=== PATIENT | female | born 1965 | race Caucasian/White ===

== ENCOUNTER 2021-05-09 08:15 | Outpatient (RCR) | payer MEDICARE, MEDICAID, SELFPAY ==
[2021-05-02 08:13] VITALS: BP 127/78; PULSE 113; RESP 18; TEMP 36.1; BMI 73.7
--- NOTE | 2021-05-02 09:30 | HP.PCM_ITS ---
History of Present Illness Date of Service: 05/02/21 Chief Complaint: Follow-up abdominal wounds left lower quadrant History of Wound: 55-year-old morbid obese woman with history of endometrial cancer that received radiation therapy in the last year. She has healed radiation mcneil all over her abdomen. She has developed cellulitis in her abdominal area and then 2 areas opened about 2 months ago and now connecting underneath the skin with tunneling. She has been seen in the emergency room and was sent to rehab for wound care. She has been taking we think ciprofloxacin as an antibiotic and has been packing it with new gauze. She is currently on Xarelto blood thinners . The wounds themselves look clean irrigate well bleeds easily we will apply for wound VAC. Cultures will be obtained. We will pack with iodoform gauze for the week until we get the wound VAC. [facility] Home Medications albuterol sulfate [Ventolin Hfa (SP)] 1 - 2 puff INHALATION Q4H PRN PRN 10/23/17 [History Last Taken Unknown] citalopram 40 mg PO DAILY 10/23/17 [History Last Taken Unknown] divalproex [Depakote] 500 mg PO BID 10/23/17 [History Last Taken 10/24/17 07:30] fluticasone furoate-vilanterol [Breo Ellipta 200-25 Mcg INH] 1 puff IH DAILY 10/23/17 [History Last Taken Unknown] fluticasone propionate 2 spray NASAL DAILY 10/23/17 [History Last Taken Unknown] loratadine 10 mg PO DAILY 10/23/17 [History Last Taken Unknown] lorazepam 0.5 mg PO TID PRN PRN 10/23/17 [History Last Taken Unknown] metolazone 2.5 mg PO BID 10/23/17 [History Last Taken Unknown] promethazine 25 mg PO Q6H PRN PRN 10/23/17 [History Last Taken Unknown] rivaroxaban [Xarelto] 20 mg PO DAILY 10/23/17 [History Last Taken Unknown] sumatriptan succinate [Imitrex] 100 mg PO .X1 PRN 10/23/17 [History Last Taken Unknown] cholecalciferol (vitamin D3) [Vitamin D3] 25 mcg PO DAILY 05/02/21 [History Last Taken Unknown] Allergy/AdvReac Type Severity Reaction Status Date / Time cephalexin [From flex] Allergy Rash Verified 05/02/21 08:28 doxycycline Allergy Rash Verified 05/02/21 08:28 sulfamethoxazole Allergy Rash Verified 05/02/21 08:28 [From Bactrim] trimethoprim [From Bactrim] Allergy Rash Verified 05/02/21 08:28 Social History Smoking Status: Never smoker ROS Constitutional Constitutional: Reports systems reviewed and no addt'l complaints, except as documented Eyes Eyes: Reports systems reviewed and no addt'l complaints, except as documented ENT HEENT: Reports systems reviewed and no addt'l complaints, except as documented Cardiovascular Cardiovascular: Reports systems reviewed and no addt'l complaints, except as documented Respiratory/Chest Respiratory/Chest: Reports systems reviewed and no addt'l complaints, except as documented Gastrointestinal Gastrointestinal: Reports systems reviewed and no addt'l complaints, except as documented Genitourinary Genitourinary: Reports systems reviewed and no addt'l complaints, except as documented Musculoskeletal Musculoskeletal: Reports systems reviewed and no addt'l complaints, except as documented Integumentary Integumentary: Reports systems reviewed and no addt'l complaints, except as documented Neurologic Neurologic: Reports systems reviewed and no addt'l complaints, except as documented Psychiatric Psychiatric: Reports systems reviewed and no addt'l complaints, except as documented Endocrine Endocrinology: Reports systems reviewed and no addt'l complaints, except as documented Hematologic/Lymphatic Hematologic/Lymphatic: Reports systems reviewed and no addt'l complaints, except as documented Allergic/Immunologic Allergic/Immunologic: Reports systems reviewed and no addt'l complaints, except as documented Vital Signs Vital Signs Vital Signs: 05/02/21 08:13 Temperature 96.9 F L Temperature Source Temporal Pulse Rate 113 H Respiratory Rate 18 Blood Pressure 127/78 H Blood Pressure Mean 94 Blood Pressure Source Monitor Blood Pressure Position Sitting Blood Pressure Location Left Forearm Oxygen Delivery Method Room Air Weight Weight: 416 lb Body Mass Index (BMI) 73.7 Physical Exam Const oriented x3 General Appearance: cooperative Exam Limitations: no limitations Nutritional Appearance: obese and morbidly obese HEENT normocephalic Head and Scalp: normal to inspection Face and Sinus: normal facial exam Nose: external nose normal General Ear: hearing grossly impaired External Ear: external ears normal Mouth: oral and palatal mucosa normal Eyes PERRL General Eye: normal appearance of both eyes Neck full ROM General: normal visual inspection Resp normal respiratory effort Effort and Inspection: able to speak in complete sentences Auscultation: clear to auscultation bilaterally Cardio regular rate and regular rhythm Palpation: normal PMI Rate: regular rate Rhythm: regular rhythm GI Auscultation: normoactive bowel sounds Palpation: soft and no hepatosplenomegaly external exam normal Back/Spine Cervical Spine: cervical ROM normal Thoracic Spine / Upper Back: normal to inspection Lumbar Spine / Lower Back: normal to inspection Extremity normal to inspection General Extremity: normal exam except as noted Skin no rashes or lesions noted Neuro oriented x3 Psych Appearance: grossly normal Speech: normal speech Thought Content: normal thought content Judgement: judgement good Debridement Note Debridement Note Post-Debridement Measurements and Additional Note: Post-Debridement Measurements/Treatment - Nurse 1 - General Ulcer Assessment Start: 05/02/21 08:13 Freq: Status: Active Protocol: JODY.LOWEXT Activity Type Activity Date Activity User E-Sign Co-Sign Detail Recorded Client Recorded Date Recorded By Document 05/02/21 08:13 BRENDA [id number] 05/02/21 08:22 BRENDA 05/02/21 08:13 - Today's Visit Information Type of service Follow-up Visit (Physician/[employer]ER ) Arrival Mode Wheelchair Transfer Assistance Other Transfer Assist (Other) stand by Accompanied by mother Patient Identification Verified (Name & Yes ) Patient Requires Transmission-Based No Precautions Height and Weight Height 5 ft 3 in Weight 416 lb Weight in Pounds 416.0 lbs Weight Measurement Method Stated by Patient Body Mass Index (BMI) 73.7 BMI Classification Obese BSA - Bryant 2.64 Vital Signs Temperature (97.8 F-99.1 F) 96.9 F L Temperature Source Temporal Pulse Rate (60-100) 113 H Pulse Location Monitor Respiratory Rate (12-18) 18 Respiratory rate source Observation Oxygen Delivery Method Room Air Blood Pressure (90/60-120/80) 127/78 H Blood Pressure Mean 94 Source Monitor Position Sitting Blood Pressure Location Left Forearm History Since Last Visit- (Skip if this is Patient's initial visit) Left Footwear Regular Shoe Right Footwear Regular Shoe Pain Scale: 0-10 Numeric Is Patient Pain Free? Yes Communication Assessment Preferred language Israeli Clinical Quality Assurance Associate Required No Able to Read Yes Able to Write Yes Communication Tools None Right Hearing Abillity Normal Left Hearing Abillity Normal Visual Assistive Devices Glasses Teaching Assessment Preferences Verbal,Written, Audio/Visual, Demonstration Barriers to Learning None Readiness To Learn Excellent Willingness to Engage in Self Management High Activies Readiness to Engage in Self Management High Activities Anxiety Level Calm Cooperation Cooperative Perception Coherent Interest in Health Problem Asks Questions Education Importance Acknowledges Need Does Patient Smoke tobacco or other No substances Smoking Status Never smoker Is Patient Diabetic No Culture/Catholic/Environmental Professional Cultural/Catholic Needs that may affect No Treatment Plan WC - Nurse 1 - General Ulcer Measurement Start: 05/02/21 08:13 Freq: Status: Active Protocol: Activity Type Activity Date Activity User E-Sign Co-Sign Detail Recorded Client Recorded Date Recorded By Document 05/02/21 08:13 KR [id number] 05/02/21 08:22 KR 05/02/21 08:13 Wound Center Nurse 1 #1- L LOWER ABDOMEN -Combined with other wound No -Current Size (cm) - Length 1.7 -Current Size (cm) - Width 0.6 -Current Size (cm) - Depth 5.3 -Total Square Cm 1.02 -Date of Last Picture (Recall this 05/02/21 field) -Photo Taken Yes -Epithelialization None Present -Tunneling No -Undermining/Tunneling No -Circular Undermining No -Exudate Amt Large -Exudate Type Serosanguineous -Wound Margin Distinct, Outline Attached -Granulation Amt Large (67-100%) -Granulation Quality Red -Slough/Fibrin Yes -Necrosis Amt Small (1-33%) -Necrotic Tissue Type Adherent Slough -Texture (Kristal-wound Skin Appearance) Assessed, Scarring -Moisture (Kristal-wound Skin Appearance) Assessed -Color (Kristal-wound Skin Appearance) Assessed -Temperature (Kristal-wound Skin No Abnormality Appearance) (Pt Warm) -Tenderness on Palpation (Kristal-wound No Skin Appearance) -Ulcer Cleansing Rinsed/ Irrigated with Saline -Foul Odor after Cleansing No -Anesthetic Used 5% Lidocaine Gel WC - Nurse 2 - General Ulcer CM Notes Start: 05/02/21 08:13 Freq: Status: Active Protocol: Activity Type Activity Date Activity User E-Sign Co-Sign Detail Recorded Client Recorded Date Recorded By Document 05/02/21 09:00 MW [id number] 05/02/21 09:09 MW 05/02/21 09:00 Wound Center Nurse 2 -Time 09:01 -Correct Patient Yes -Correct Side, Site, Position Yes -Correct Procedure Yes -Procedure Performed Yes -Type of Procedure Debridement -Clinical Debridement Subcutaneous -Tissue Removed Subcutaneous -Post Debridement (cm) - Length 1.0 -Post Debridement (cm) - Width 4.5 -Post Debridement (cm) - Depth 5.3 -Total Square (Post) (cm) 4.50 -Area of Debridement (cm) - Length 1.0 -Area of Debridement (cm) - Width 4.5 -Total Square (Area) (cm) 4.50 -Tunneling No -Undermining/Tunneling No -Circular Undermining No -Wound/Ulcer Outcome Not Healed -Ulcer Cleansing Rinsed/ Irrigated with Saline -Foul Odor after Cleansing No -Bioengineered Tissue No -Bleeding Controlled with Pressure -Offloading No -Debridement - Subq, 1st 20sq cm Yes - Nurse 3 - General Ulcer D/C NN Start: 05/02/21 08:13 Freq: Status: Active Protocol: Activity Type Activity Date Activity User E-Sign Co-Sign Detail Recorded Client Recorded Date Recorded By Document 05/02/21 09:20 [facility] [id number] 05/02/21 09:21 [facility] 05/02/21 09:20 Wound Care Nurse 3 -Ulcer Cleansing Rinsed/ Irrigated with Saline -Foul Odor after Cleansing No -Primary Dressing Applied Nugauze, Iodoform -Primary Dressing Covered/Secured with Secured with Tape,Other -Other Covering ABD -Nugauze, Iodoform 1/ 1 Treatment Response Procedure Tolerated Well Pain Scale: 0-10 Numeric Is Patient Pain Free? Yes - Visit Discharge Discharge Condition Stable Ambulatory Status Wheelchair Transportation Private Auto Accompanied by MOM Wound debrided: Left lower quadrant wounds Laterality: Left Type of Debridement: Excisional debridement Anesthesia Used: 5% Lidocaine Gel Depth: Down to and including healthy tissue and in the subcutaneous layer Percentage of wound debrided: 100 Instrument Used: 7mm curette Tissue Removed: Fibrin Severity: Fat Layer Exposed Amount of bleeding with debridement: Mild Bleeding Controlled with: Compression and gauze Patient tolerated procedure: Patient tolerated procedure well Assessment/Plan Assessment/Plan (1) Cellulitis: CODE(S): L03.90 - Cellulitis, unspecified QUALIFIERS: Site of cellulitis: trunk Site of cellulitis of trunk: abdominal wall Qualified Code(s): L03.311 - Cellulitis of abdominal wall (2) Nonhealing nonsurgical wound with fat layer exposed: CODE(S): T14.8XXA - Other injury of unspecified body region, initial encounter PLAN: Wash area with antibacterial soap such as Dial. Pack with iodoform gauze 1/2 inch tightly cover with gauze and ABD tape Aerobic and anaerobic cultures obtained will call with results CBC and prealbumin will be obtained Applied for wound VAC for her abdominal wall wound (3) Wound, open, abdominal wall, anterior: CODE(S): S31.109A - Unspecified open wound of abdominal wall, unspecified quadrant without penetration into peritoneal cavity, initial encounter QUALIFIERS: Encounter type: initial encounter Qualified Code(s): S31.109A - Unspecified open wound of abdominal wall, unspecified quadrant without penetration into peritoneal cavity, initial encounter (4) 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
[2021-05-09 08:04] VITALS: BP 155/71; PULSE 109; RESP 18; TEMP 36.2; BMI 73.7
--- NOTE | 2021-05-09 09:59 | PN.PCM_ITS ---
History of Present Illness Date of Service: 05/09/21 Chief Complaint: Follow-up abdominal wounds left lower quadrant History of Wound: 55-year-old morbid obese woman with history of endometrial cancer that received radiation therapy in the last year. She has healed radiation mcneil all over her abdomen. She has developed cellulitis in her abdominal area and then 2 areas opened about 2 months ago and now connecting underneath the skin with tunneling. She has been seen in the emergency room and was sent to rehab for wound care. She has been taking we think ciprofloxacin as an antibiotic and has been packing it with new gauze. She is currently on Xarelto blood thinners . Progress of Wound: The wounds themselves look clean irrigate well bleeds easily we will applied for wound VAC. She brought it today with it charged . the Cultures we obtained shows resistance to everything and We will call in ID for solution. Subjective Subjective no c/o except she sweats terribly and wonder what to do Suggest using a folded pillowcase in the folds to absorb the sweat. Objective Data Objective Data aarea looks the same with + depth will attach the wound vac and go from there Vital Signs: Vital Signs Temp Pulse Resp BP 97.1 F L 109 H 18 155/71 H 05/09/21 08:04 05/09/21 08:04 05/09/21 08:04 05/09/21 08:04 Oxygen Delivery Method Room Air Weight: 416 lb Body Mass Index (BMI) 73.7 Lab / Micro Data Attestation: I reviewed the patient's lab results. (cbc good ) Micro: Microbiology 05/02/21 09:00 Wound Abcess - Abdominal Gram Stain - Final 05/02/21 09:00 Wound Abcess - Abdominal Wound Culture - Final Acinetobacter baumannii 05/02/21 09:00 Wound Abcess - Abdominal Anaerobic Culture - Final Anaerobic cocci cultures show reisistance to everything Physical Exam Const oriented x3 General Appearance: cooperative Exam Limitations: no limitations Nutritional Appearance: morbidly obese Resp normal respiratory effort Effort and Inspection: able to speak in complete sentences Auscultation: clear to auscultation bilaterally Cardio regular rate and regular rhythm Palpation: normal PMI Rate: regular rate Rhythm: regular rhythm GI GI Narrative: abd pendulous Inspection: central obesity Auscultation: normoactive bowel sounds Palpation: soft and no hepatosplenomegaly Extremity normal to inspection General Extremity: normal exam except as noted Skin no rashes or lesions noted Neuro oriented x3 Psych Appearance: grossly normal Speech: normal speech Thought Content: normal thought content Judgement: judgement good Debridement Note Debridement Note Post-Debridement Measurements and Additional Note: Post-Debridement Measurements/Treatment - Nurse 1 - General Ulcer Assessment Start: 05/02/21 08:13 Freq: Status: Active Protocol: JODY.LOWEXT Activity Type Activity Date Activity User E-Sign Co-Sign Detail Recorded Client Recorded Date Recorded By Document 05/02/21 08:13 KR [id number] 05/02/21 08:22 KR Document 05/09/21 08:04 BM [id number] 05/09/21 08:08 BM 05/02/21 05/09/21 08:13 08:04 - Today's Visit Information Type of service Follow-up Visit Follow-up Visit (Physician/[employer] TEACHER (Physician/[employer] H[employer] TEACHER ) ) Arrival Mode Wheelchair Wheelchair Transfer Assistance Other Other Transfer Assist (Other) stand by 2 assist Accompanied by mother mother Patient Identification Verified (Name & Yes Yes ) Patient Requires Transmission-Based No No Precautions Height and Weight Height 5 ft 3 in Weight 416 lb Weight in Pounds 416.0 lbs Weight Measurement Method Stated by Patient Body Mass Index (BMI) 73.7 73.7 BMI Classification Obese Obese BSA - Bryant 2.64 Vital Signs Temperature (97.8 F-99.1 F) 96.9 F L 97.1 F L Temperature Source Temporal Temporal Pulse Rate (60-100) 113 H 109 H Pulse Location Monitor Monitor Respiratory Rate (12-18) 18 18 Respiratory rate source Observation Observation Oxygen Delivery Method Room Air Room Air Blood Pressure (90/60-120/80) 127/78 H 155/71 H Blood Pressure Mean (mm Hg) 94 99 Source Monitor Monitor Position Sitting Blood Pressure Location Left Forearm Have you changed medications since your No last visit? Any new allergies or adverse reactions No Had a fall/change in ADL's that may No increase risk of falls Signs or symptoms of abuse and/or No neglect since last visit Have you been in the hospital since your No last visit? Has dressing in place as prescribed Yes Has compression in place as prescribed N/A Has offloadiing in place as prescribed N/A Experienced any changes in pain level or No management History Since Last Visit- (Skip if this is Patient's initial visit) Left Footwear Regular Shoe Slipper Right Footwear Regular Shoe Slipper Pain Scale: 0-10 Numeric Is Patient Pain Free? Yes Yes Communication Assessment Preferred language Armenian Regional Agronomist Required No Able to Read Yes Able to Write Yes Communication Tools None Right Hearing Abillity Normal Left Hearing Abillity Normal Visual Assistive Devices Glasses Teaching Assessment Preferences Verbal,Written, Audio/Visual, Demonstration Barriers to Learning None Readiness To Learn Excellent Willingness to Engage in Self Management High Activies Readiness to Engage in Self Management High Activities Anxiety Level Calm Cooperation Cooperative Perception Coherent Interest in Health Problem Asks Questions Education Importance Acknowledges Need Does Patient Smoke tobacco or other No substances Smoking Status Never smoker Is Patient Diabetic No Culture/Orthodoxy/Internet Network Specialist Cultural/Orthodoxy Needs that may affect No Treatment Plan WC - Nurse 1 - General Ulcer Measurement Start: 05/02/21 08:13 Freq: Status: Active Protocol: Activity Type Activity Date Activity User E-Sign Co-Sign Detail Recorded Client Recorded Date Recorded By Document 05/02/21 08:13 [id number] 05/02/21 08:22 KR Document 05/09/21 08:04 [facility] [id number] 05/09/21 08:08 [facility] 05/02/21 05/09/21 08:13 08:04 Wound Center Nurse 1 #1- L LOWER ABDOMEN -Combined with other wound No No -Current Size (cm) - Length 1.7 1 -Current Size (cm) - Width 0.6 2.4 -Current Size (cm) - Depth 5.3 5.3 -Total Square Cm 1.02 2.4 -Date of Last Picture (Recall this 05/02/21 field) -Photo Taken Yes No -Epithelialization None Present None Present -Tunneling No No -Undermining/Tunneling No No -Circular Undermining No No -Exudate Amt Large Medium -Exudate Type Serosanguineous Sanguineous -Wound Margin Distinct, Distinct, Outline Outline Attached Attached -Granulation Amt Large (67-100%) Large (67-100%) -Granulation Quality Red Red -Slough/Fibrin Yes No -Necrosis Amt Small (1-33%) None Present (0 %) -Necrotic Tissue Type Adherent Slough -Texture (Kristal-wound Skin Appearance) Assessed, Assessed, Scarring Scarring -Moisture (Kristal-wound Skin Appearance) Assessed Assessed -Color (Kristal-wound Skin Appearance) Assessed Assessed -Temperature (Kristal-wound Skin No Abnormality No Abnormality Appearance) (Pt Warm) (Pt Warm) -Tenderness on Palpation (Kristal-wound No No Skin Appearance) -Ulcer Cleansing Rinsed/ soapy water Irrigated with Saline -Foul Odor after Cleansing No No -Anesthetic Used 5% Lidocaine 4% Lidocaine Gel Solution WC - Nurse 2 - General Ulcer CM Notes Start: 05/02/21 08:13 Freq: Status: Active Protocol: Activity Type Activity Date Activity User E-Sign Co-Sign Detail Recorded Client Recorded Date Recorded By Document 05/02/21 09:00 MW [id number] 05/02/21 09:09 MW Document 05/09/21 08:37 PL [id number] 05/09/21 08:41 PL 05/02/21 05/09/21 09:00 08:37 Wound Center Nurse 2 -Time 09:01 08:18 -Correct Patient Yes Yes -Correct Side, Site, Position Yes Yes -Correct Procedure Yes Yes -Procedure Performed Yes -Type of Procedure Debridement -Clinical Debridement Subcutaneous Subcutaneous -Tissue Removed Subcutaneous Subcutaneous -Post Debridement (cm) - Length 1.0 0.9 -Post Debridement (cm) - Width 4.5 3.5 -Post Debridement (cm) - Depth 5.3 4.5 -Total Square (Post) (cm) 4.50 3.15 -Area of Debridement (cm) - Length 1.0 0.9 -Area of Debridement (cm) - Width 4.5 3.5 -Total Square (Area) (cm) 4.50 3.15 -Tunneling No No -Undermining/Tunneling No No -Circular Undermining No No -Wound/Ulcer Outcome Not Healed Not Healed -Ulcer Cleansing Rinsed/ Rinsed/ Irrigated with Irrigated with Saline Saline -Foul Odor after Cleansing No No -Bioengineered Tissue No No -Bleeding Controlled with Pressure -Offloading No -Debridement - Subq, 1st 20sq cm Yes Yes Pain Scale: 0-10 Numeric Is Patient Pain Free? Yes WC - Nurse 3 - General Ulcer D/C NN Start: 05/02/21 08:13 Freq: Status: Active Protocol: Activity Type Activity Date Activity User E-Sign Co-Sign Detail Recorded Client Recorded Date Recorded By Document 05/02/21 09:20 BM [id number] 05/02/21 09:21 BM Document 05/09/21 08:24 KR [id number] 05/09/21 08:25 BRENDA 05/02/21 05/09/21 09:20 08:24 Wound Care Nurse 3 #1- L LOWER ABDOMEN -Ulcer Cleansing Rinsed/ Rinsed/ Irrigated with Irrigated with Saline Saline -Foul Odor after Cleansing No -Negative Pressure Wound Therapy Start -Setting (mmHg) 125 -Negative Pressure is Continuous -Primary Dressing Applied Nugauze, Iodoform -Primary Dressing Covered/Secured with Secured with Tape,Other -Other Covering ABD -NPWT Application Charge ($) NPWT </= 50 sq cm -Nugauze, Iodoform 11/13 1 Treatment Response Procedure Tolerated Well Pain Scale: 0-10 Numeric Is Patient Pain Free? Yes Yes WC - Visit Discharge Discharge Condition Stable Stable Ambulatory Status Wheelchair Wheelchair Transportation Private Auto Private Auto Accompanied by MOM mother Wound debrided: Left abdominal cluster Type of Debridement: Excisional debridement Anesthesia Used: 5% Lidocaine Gel Depth: Down to and including healthy tissue, in the subcutaneous layer and to muscle Percentage of wound debrided: 100 Instrument Used: 3mm curette Tissue Removed: Fibrin Severity: Fat Layer Exposed Amount of bleeding with debridement: Mild Bleeding Controlled with: Compression and gauze Patient tolerated procedure: Patient tolerated procedure well Assessment/Plan Assessment/Plan (1) Morbid obesity with body mass index (BMI) of 60.0 to 69.9 in adult: CODE(S): E66.01 - Morbid (severe) obesity due to excess calories; Z68.44 - Body mass index [BMI] 60.0-69.9, adult (2) detention (current) use of anticoagulants: CODE(S): Z79.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 Explained to and demonstrate to patient on its application and how to reinforce. Patient should call if having issues or try to reinforce herself not to lose suction If patient loses suction she needs to go back to packing. Follow-up in 1 week (4) Wound, open, abdominal wall, anterior: CODE(S): S31.109A - Unspecified open wound of abdominal wall, unspecified quadrant without penetration into peritoneal cavity, initial encounter QUALIFIERS: Encounter type: initial encounter Qualified Code(s): S31.109A - Unspecified open wound of abdominal wall, unspecified quadrant without penetration into peritoneal cavity, initial encounter
== END 2021-05-09 23:59 ==
LOC: WC 08:15
PROVIDERS: PCP Family Medicine; Visit Provider Nurse Practitioner
DX: L03.311 Cellulitis of abdominal wall (principal); T81.49XA Infection following a procedure, other surgical site, initial encounter; Y83.8 Other surgical procedures as the cause of abnormal reaction of the patient, or of later complication, without mention of misadventure at the time of the procedure; E66.01 Morbid (severe) obesity due to excess calories; Z79.01 Long term (current) use of anticoagulants; Z68.44 Body mass index [BMI] 60.0-69.9, adult; Z92.3 Personal history of irradiation; Z85.42 Personal history of malignant neoplasm of other parts of uterus; Z79.51 Long term (current) use of inhaled steroids
CPT/HCPCS: 11042; 87070; 87075; 87077; 87186; 87205; 97605; 99203; G0463

== ENCOUNTER 2021-06-06 09:00 | Outpatient (RCR) | payer MEDICARE, MEDICAID, SELFPAY ==
[2021-05-10 00:34] VITALS: BP 155/71; PULSE 109; RESP 18; TEMP 36.2
[2021-05-16 08:08] VITALS: BP 138/54; PULSE 87; RESP 18; TEMP 37.1; BMI 73.7
--- NOTE | 2021-05-16 08:58 | PN.PCM_ITS ---
History of Present Illness Date of Service: 05/16/21 Chief Complaint: Follow-up abdominal wounds left lower quadrant History of Wound: 55-year-old morbid obese woman with history of endometrial cancer that received radiation therapy in the last year. She has healed radiation mcneil all over her abdomen. She has developed cellulitis in her abdominal area and then 2 areas opened about 2 months ago and now connecting underneath the skin with tunneling. She has been seen in the emergency room and was sent to rehab for wound care. She has been taking we think ciprofloxacin as an antibiotic and has been packing it with new gauze. She is currently on Xarelto blood thinners . Subjective Subjective Tolerated wound VAC well during the week had to reinforce it once Objective Data Objective Data Because we left it in for a week it had become attached to her skin took a while to work it out was not deep enough into the tunneling and therefore did not help the bottom half of the wound. We will try a different product in the wound for suction on Friday patient will come back. In the meantime we will pack it with roping until we can see her on Friday to put the wound VAC back on Vital Signs: Vital Signs Temp Pulse Resp BP 98.8 F 87 18 138/54 H 05/16/21 08:08 05/16/21 08:08 05/16/21 08:08 05/16/21 08:08 Weight: 416 lb Body Mass Index (BMI) 73.7 Lab / Micro Data Lab results narrative: cultures are resistant to antibiotic therapy and she also has an anaerobe we will start her on metronidazole Physical Exam Const oriented x3 General Appearance: cooperative Exam Limitations: no limitations Resp normal respiratory effort Effort and Inspection: able to speak in complete sentences Auscultation: clear to auscultation bilaterally Cardio regular rate and regular rhythm Palpation: normal PMI Rate: regular rate Rhythm: regular rhythm GI Auscultation: normoactive bowel sounds Palpation: soft and no hepatosplenomegaly Skin no rashes or lesions noted Skin Narrative: Open wound left abdomen Neuro oriented x3 Psych Appearance: grossly normal Speech: normal speech Thought Content: normal thought content Judgement: judgement good Debridement Note Debridement Note Post-Debridement Measurements and Additional Note: Post-Debridement Measurements/Treatment JODY - Nurse 1 - General Ulcer Assessment Start: 05/16/21 08:04 Freq: Status: Active Protocol: WC.LOWEXT Activity Type Activity Date Activity User E-Sign Co-Sign Detail Recorded Client Recorded Date Recorded By Document 05/16/21 08:08 PL [id number] 05/16/21 08:25 PL 05/16/21 08:08 WC - Today's Visit Information Type of service Follow-up Visit (Physician/FAMILY SERVICES ASSISTANT ) Arrival Mode Wheelchair Transfer Assistance Manual Patient Identification Verified (Name & Yes ) Patient Requires Transmission-Based No Precautions Safety Precautions NA Height and Weight Body Mass Index (BMI) 73.7 BMI Classification Obese Vital Signs Temperature (97.8 F-99.1 F) 98.8 F Temperature Source Temporal Pulse Rate (60-100) 87 Respiratory Rate (12-18) 18 Blood Pressure (90/60-120/80) 138/54 H Blood Pressure Mean (mm Hg) 82 History Since Last Visit- (Skip if this is Patient's initial visit) Have you changed medications since your No last visit? Any new allergies or adverse reactions No Had a fall/change in ADL's that may No increase risk of falls Signs or symptoms of abuse and/or No neglect since last visit Have you been in the hospital since your No last visit? Has dressing in place as prescribed Yes Has compression in place as prescribed N/A Has offloadiing in place as prescribed N/A Experienced any changes in pain level or No management Pain Scale: 0-10 Numeric Is Patient Pain Free? Yes WC - Nurse 2 - General Ulcer CM Notes Start: 05/16/21 08:04 Freq: Status: Active Protocol: Activity Type Activity Date Activity User E-Sign Co-Sign Detail Recorded Client Recorded Date Recorded By Document 05/16/21 08:23 MW [id number] 05/16/21 08:36 MW 05/16/21 08:23 Wound Center Nurse 2 #1- L LOWER ABDOMEN -Time 08:24 -Correct Patient Yes -Correct Side, Site, Position Yes -Correct Procedure Yes -Procedure Performed Yes -Type of Procedure Debridement -Clinical Debridement Subcutaneous -Tissue Removed Subcutaneous -Post Debridement (cm) - Length 2.0 -Post Debridement (cm) - Width 2.5 -Post Debridement (cm) - Depth 5.6 -Total Square (Post) (cm) 5.00 -Area of Debridement (cm) - Length 2.0 -Area of Debridement (cm) - Width 2.5 -Total Square (Area) (cm) 5.00 -Tunneling No -Undermining/Tunneling No -Circular Undermining No -Wound/Ulcer Outcome Not Healed -Ulcer Cleansing Rinsed/ Irrigated with Saline -Foul Odor after Cleansing No -Bioengineered Tissue No -Bleeding Controlled with Pressure -Offloading No -Treatment Response Procedure Tolerated Well -Debridement - Subq, 1st 20sq cm Yes Pain Scale: 0-10 Numeric Is Patient Pain Free? Yes WC - Nurse 3 - General Ulcer D/C NN Start: 05/16/21 08:04 Freq: Status: Active Protocol: Activity Type Activity Date Activity User E-Sign Co-Sign Detail Recorded Client Recorded Date Recorded By Document 05/16/21 08:37 MW [id number] 05/16/21 08:43 MW 05/16/21 08:37 Wound Care Nurse 3 #1- L LOWER ABDOMEN -Ulcer Cleansing Rinsed/ Irrigated with Saline -Foul Odor after Cleansing No -Negative Pressure Wound Therapy N/A -Primary Dressing Applied Aquacel AG 4x4 -Primary Dressing Covered/Secured with Secured with Tape -Other Covering abd -Aquacel AG 4x4 2 Treatment Response Procedure Tolerated Well Pain Scale: 0-10 Numeric Is Patient Pain Free? Yes Teaching: Wound Center Dressing Your Wound -Person Taught Patient -Teaching Method Discussion, Demonstration -Response to teaching Verbalize understanding WC - Visit Discharge Discharge Condition Stable Ambulatory Status Wheelchair Transportation Private Auto Medication Reconcilliation completed & No provided to patient/care provider Clinical Summary of Care Provided Yes Wound debrided: Left lower abdominal wall Type of Debridement: Excisional debridement Anesthesia Used: 5% Lidocaine Gel Depth: Down to and including healthy tissue, in the subcutaneous layer and to muscle Instrument Used: 3mm curette and Forceps Tissue Removed: Fibrin Severity: Fat Layer Exposed Amount of bleeding with debridement: Mild Bleeding Controlled with: Pressure Patient tolerated procedure: Patient tolerated procedure well Assessment/Plan Assessment/Plan (1) Morbid obesity with body mass index (BMI) of 60.0 to 69.9 in adult: CODE(S): E66.01 - Morbid (severe) obesity due to excess calories; Z68.44 - Body mass index [BMI] 60.0-69.9, adult (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 Patient will return with wound VAC for a different packing material. Again we will follow-up on the following Friday. (4) Wound, open, abdominal wall, anterior: CODE(S): S31.109A - Unspecified open wound of abdominal wall, unspecified quadrant without penetration into peritoneal cavity, initial encounter QUALIFIERS: Encounter type: initial encounter Qualified Code(s): S31.109A - Unspecified open wound of abdominal wall, unspecified quadrant without penetration into peritoneal cavity, initial encounter
--- NOTE | 2021-05-16 14:01 | WC ---
White foam ordered for patient wound vac from [address] Reference #[id number]. Supplies to be delivered tomorrow 05/17/21 to patient home. Patient notified to expect delivery and bring to wound center Friday to nurse visit appointment.
[2021-05-23 08:37] VITALS: BP 153/56; PULSE 96; TEMP 36.1; BMI 73.7
--- NOTE | 2021-05-23 11:30 | PN.PCM_ITS ---
History of Present Illness Date of Service: 05/23/21 Chief Complaint: Follow-up abdominal wounds left lower quadrant History of Wound: 55-year-old morbid obese woman with history of endometrial cancer that received radiation therapy in the last year. She has healed radiation mcneil all over her abdomen. She has developed cellulitis in her abdominal area and then 2 areas opened about 2 months ago and now connecting underneath the skin with tunneling. She has been seen in the emergency room and was sent to rehab for wound care. She has been taking we think ciprofloxacin as an antibiotic and has been packing it with new gauze. She is currently on Xarelto blood thinners . Progress of Wound: We started her on a wound VAC approximately 2 weeks ago but the black packing material was getting stuck in the wound. We changed to the white packing that will not stick but it had to be delivered so in the meantime she has been using her Aquacel extra. Till this week when she could reapply the wound VAC with the proper packing. We also have anaerobes in the wound so we started her on metronidazole Subjective Subjective Patient complains the metronidazole is making her very ill ended up in the emergency room over the holiday weekend and now has Zofran to take along with the metronidazole. Objective Data Objective Data Vital Signs: Vital Signs Temp Pulse Resp BP 96.9 F L 96 18 153/56 H 05/23/21 08:37 05/23/21 08:37 05/16/21 08:08 05/23/21 08:37 Weight: 416 lb Body Mass Index (BMI) 73.7 Intake & Output: The wound is about the same as it was the outside is smaller but the tunneling is still there. We will reapply the wound VAC and have her follow-up on Fridays and rechange it and see if we have seeing a difference. Lab / Micro Data Attestation: I reviewed the patient's lab results. Physical Exam Const oriented x3 General Appearance: cooperative Exam Limitations: no limitations Resp normal respiratory effort Effort and Inspection: able to speak in complete sentences Auscultation: clear to auscultation bilaterally Cardio regular rate and regular rhythm Palpation: normal PMI Rate: regular rate Rhythm: regular rhythm Skin Wounds: wounds noted Neuro oriented x3 Psych Appearance: grossly normal Speech: normal speech Thought Content: normal thought content Judgement: judgement good Debridement Note Debridement Note Post-Debridement Measurements and Additional Note: Post-Debridement Measurements/Treatment - Nurse 1 - General Ulcer Assessment Start: 05/16/21 08:04 Freq: Status: Active Protocol: OSKAR Activity Type Activity Date Activity User E-Sign Co-Sign Detail Recorded Client Recorded Date Recorded By Document 05/16/21 08:08 PL [id number] 05/16/21 08:25 PL Document 05/23/21 08:37 KR [id number] 05/23/21 08:39 KR 05/16/21 05/23/21 08:08 08:37 JODY - Today's Visit Information Type of service Follow-up Visit Follow-up Visit (Physician/SENIOR ACCOUNTING ANALYST (Physician/SENIOR ACCOUNTING ANALYST ) ) Arrival Mode Wheelchair Wheelchair Transfer Assistance Manual Patient Identification Verified (Name & Yes Yes ) Patient Requires Transmission-Based No Precautions Safety Precautions NA Height and Weight Body Mass Index (BMI) 73.7 73.7 BMI Classification Obese Obese Vital Signs Temperature (97.8 F-99.1 F) 98.8 F 96.9 F L Temperature Source Temporal Temporal Pulse Rate (60-100) 87 96 Pulse Location Monitor Respiratory Rate (12-18) 18 Blood Pressure (90/60-120/80) 138/54 H 153/56 H Blood Pressure Mean (mm Hg) 82 88 Source Monitor Position Sitting Blood Pressure Location Right Arm History Since Last Visit- (Skip if this is Patient's initial visit) Have you changed medications since your No No last visit? Any new allergies or adverse reactions No No Had a fall/change in ADL's that may No No increase risk of falls Signs or symptoms of abuse and/or No No neglect since last visit Have you been in the hospital since your No No last visit? Has dressing in place as prescribed Yes Yes Has compression in place as prescribed N/A N/A Has offloadiing in place as prescribed N/A N/A Experienced any changes in pain level or No No management Left Footwear Regular Shoe Right Footwear Regular Shoe Pain Scale: 0-10 Numeric Is Patient Pain Free? Yes Yes JODY - Nurse 1 - General Ulcer Measurement Start: 05/16/21 08:04 Freq: Status: Active Protocol: Activity Type Activity Date Activity User E-Sign Co-Sign Detail Recorded Client Recorded Date Recorded By Document 05/23/21 08:37 BRENDA [id number] 05/23/21 08:39 KR 05/23/21 08:37 Wound Center Nurse 1 #1- L LOWER ABDOMEN -Current Size (cm) - Length 2.1 -Current Size (cm) - Width 2.6 -Current Size (cm) - Depth 5.5 -Total Square Cm 5.46 -Exudate Amt Large -Exudate Type Serosanguineous -Wound Margin Distinct, Outline Attached -Granulation Amt Medium (34-66%) -Granulation Quality Red -Necrosis Amt Medium (34-66%) -Necrotic Tissue Type Adherent Slough -Texture (Kristal-wound Skin Appearance) Assessed, Scarring -Moisture (Kristal-wound Skin Appearance) No Abnormality, Assessed -Color (Kristal-wound Skin Appearance) No Abnormality, Assessed -Temperature (Kristal-wound Skin No Abnormality Appearance) (Pt Warm) -Tenderness on Palpation (Kristal-wound No Skin Appearance) -Ulcer Cleansing Rinsed/ Irrigated with Saline -Foul Odor after Cleansing No -Anesthetic Used 4% Lidocaine Solution WC - Nurse 2 - General Ulcer CM Notes Start: 05/16/21 08:04 Freq: Status: Active Protocol: Activity Type Activity Date Activity User E-Sign Co-Sign Detail Recorded Client Recorded Date Recorded By Document 05/16/21 08:23 MW [id number] 05/16/21 08:36 MW Document 05/23/21 09:12 MW [id number] 05/23/21 09:17 MW 05/16/21 05/23/21 08:23 09:12 Wound Center Nurse 2 #1- L LOWER ABDOMEN -Time 08:24 09:13 -Correct Patient Yes Yes -Correct Side, Site, Position Yes Yes -Correct Procedure Yes Yes -Procedure Performed Yes Yes -Type of Procedure Debridement Debridement -Clinical Debridement Subcutaneous Subcutaneous -Tissue Removed Subcutaneous Subcutaneous -Post Debridement (cm) - Length 2.0 1.5 -Post Debridement (cm) - Width 2.5 3.0 -Post Debridement (cm) - Depth 5.6 5.5 -Total Square (Post) (cm) 5.00 4.50 -Area of Debridement (cm) - Length 2.0 1.5 -Area of Debridement (cm) - Width 2.5 3.0 -Total Square (Area) (cm) 5.00 4.50 -Tunneling No No -Undermining/Tunneling No No -Circular Undermining No No -Wound/Ulcer Outcome Not Healed Not Healed -Ulcer Cleansing Rinsed/ Rinsed/ Irrigated with Irrigated with Saline Saline -Foul Odor after Cleansing No No -Bioengineered Tissue No No -Bleeding Controlled with Pressure Pressure -Offloading No No -Treatment Response Procedure Procedure Tolerated Well Tolerated Well -Debridement - Subq, 1st 20sq cm Yes Yes Pain Scale: 0-10 Numeric Is Patient Pain Free? Yes Yes WC - Nurse 3 - General Ulcer D/C NN Start: 05/16/21 08:04 Freq: Status: Active Protocol: Activity Type Activity Date Activity User E-Sign Co-Sign Detail Recorded Client Recorded Date Recorded By Document 05/16/21 08:37 MW [id number] 05/16/21 08:43 MW Document 05/23/21 09:46 BMF [id number] 05/23/21 09:47 BMF 05/16/21 05/23/21 08:37 09:46 Wound Care Nurse 3 #1- L LOWER ABDOMEN -Ulcer Cleansing Rinsed/ Rinsed/ Irrigated with Irrigated with Saline Saline -Foul Odor after Cleansing No No -Negative Pressure Wound Therapy N/A Continue -Setting (mmHg) 125 -Negative Pressure is Continuous -Primary Dressing Applied Aquacel AG 4x4 Other -Other Dressing white foam and black foam used perorder -Primary Dressing Covered/Secured with Secured with Tape -Other Covering abd -NPWT Application Charge ($) NPWT </= 50 sq cm -Aquacel AG 4x4 2 Treatment Response Procedure Procedure Tolerated Well Tolerated Well Pain Scale: 0-10 Numeric Is Patient Pain Free? Yes Yes Teaching: Wound Center Dressing Your Wound -Person Taught Patient -Teaching Method Discussion, Demonstration -Response to teaching Verbalize understanding WC - Visit Discharge Discharge Condition Stable Stable Ambulatory Status Wheelchair Wheelchair Transportation Private Auto Private Auto Accompanied by mom Medication Reconcilliation completed & No provided to patient/care provider Clinical Summary of Care Provided Yes Wound debrided: Left lower abdomen Type of Debridement: Excisional debridement Anesthesia Used: 5% Lidocaine Gel Depth: in the subcutaneous layer and to muscle Percentage of wound debrided: 100 Instrument Used: 7mm curette Tissue Removed: Fibrin Severity: Fat Layer Exposed Amount of bleeding with debridement: Mild Bleeding Controlled with: Pressure Patient tolerated procedure: Patient tolerated procedure well Assessment/Plan Assessment/Plan (1) Morbid obesity with body mass index (BMI) of 60.0 to 69.9 in adult: CODE(S): E66.01 - Morbid (severe) obesity due to excess calories; Z68.44 - Body mass index [BMI] 60.0-69.9, adult (2) senior care (current) use of anticoagulants: CODE(S): Z79.01 - senior care (current) use of anticoagulants (3) Nonhealing nonsurgical wound with fat layer exposed: CODE(S): T14.8XXA - Other injury of unspecified body region, initial encounter PLAN: Reapply the wound VAC at 125 mmHg with the white packing follow-up on Friday for reevaluation and reapplication Then follow-up in 1 week for office visit. (4) Wound, open, abdominal wall, anterior: CODE(S): S31.109A - Unspecified open wound of abdominal wall, unspecified quadrant without penetration into peritoneal cavity, initial encounter QUALIFIERS: Encounter type: initial encounter Qualified Code(s): S31.109A - Unspecified open wound of abdominal wall, unspecified quadrant without penetration into peritoneal cavity, initial encounter
[2021-05-25 11:51] VITALS: BP 149/69; PULSE 89; RESP 16; TEMP 36.6; BMI 73.7
[2021-05-25 13:20] VITALS: BP 148/65; PULSE 85; RESP 18; TEMP 36.4; BMI 73.7
[2021-05-30 11:24] VITALS: BP 141/71; PULSE 100; RESP 18; TEMP 36.2; BMI 73.7
--- NOTE | 2021-05-30 12:09 | PN.PCM_ITS ---
History of Present Illness Date of Service: 05/30/21 Chief Complaint: Follow-up abdominal wounds left lower quadrant History of Wound: 55-year-old morbid obese woman with history of endometrial cancer that received radiation therapy in the last year. She has healed radiation mcneil all over her abdomen. She has developed cellulitis in her abdominal area and then 2 areas opened about 2 months ago and now connecting underneath the skin with tunneling. She has been seen in the emergency room and was sent to rehab for wound care. She has been taking we think ciprofloxacin as an antibiotic and has been packing it with new gauze. She is currently on Xarelto blood thinners . Progress of Wound: We started her on a wound VAC approximately 2 weeks ago but the black packing material was getting stuck in the wound. We changed to the white packing that will not stick but it had to be delivered so in the meantime she has been using her Aquacel extra. Till this week when she could reapply the wound VAC with the proper packing. We also have anaerobes in the wound so we started her on metronidazole Subjective Subjective Finishing up her Flagyl Objective Data Objective Data Tolerating wound VAC measurements are slightly smaller increasing pressure to 150. And have patient only follow-up in 1 week unless there is issues Vital Signs: Vital Signs Temp Pulse Resp BP 97.2 F L 100 18 141/71 H 05/30/21 11:24 05/30/21 11:24 05/30/21 11:24 05/30/21 11:24 Weight: 416 lb Body Mass Index (BMI) 73.7 Physical Exam Const oriented x3 General Appearance: cooperative Exam Limitations: no limitations Resp normal respiratory effort Effort and Inspection: able to speak in complete sentences Auscultation: clear to auscultation bilaterally Cardio regular rate and regular rhythm Palpation: normal PMI Rate: regular rate Rhythm: regular rhythm Skin Wounds: wounds noted Neuro oriented x3 Psych Appearance: grossly normal Speech: normal speech Thought Content: normal thought content Judgement: judgement good Debridement Note Debridement Note Post-Debridement Measurements and Additional Note: Post-Debridement Measurements/Treatment JODY - Nurse 1 - General Ulcer Assessment Start: 05/16/21 08:04 Freq: Status: Active Protocol: JODY.MELISSA Activity Type Activity Date Activity User E-Sign Co-Sign Detail Recorded Client Recorded Date Recorded By Document 05/16/21 08:08 AFTAB [id number] 05/16/21 08:25 PL Document 05/23/21 08:37 KR [id number] 05/23/21 08:39 KR Document 05/25/21 11:51 ML [id number] 05/25/21 11:52 ML Document 05/25/21 13:20 PL [id number] 05/25/21 13:22 PL Document 05/30/21 11:24 ML [id number] 05/30/21 11:36 ML 05/16/21 05/23/21 05/25/21 08:08 08:37 11:51 WC - Today's Visit Information Type of service Follow-up Visit Follow-up Visit Nurse-only (Physician/CHANGE CONTROL COORDINATOR (Physician/CHANGE CONTROL COORDINATOR Visit ) ) Arrival Mode Wheelchair Wheelchair Wheelchair Transfer Assistance Manual None Patient Identification Verified (Name & Yes Yes Yes ) Patient Requires Transmission-Based No No Precautions Safety Precautions NA NA Height and Weight Body Mass Index (BMI) 73.7 73.7 73.7 BMI Classification Obese Obese Obese Vital Signs Temperature (97.8 F-99.1 F) 98.8 F 96.9 F L 97.8 F Temperature Source Temporal Temporal Temporal Pulse Rate (60-100) 87 96 89 Pulse Location Monitor Monitor Respiratory Rate (12-18) 18 16 Respiratory rate source Observation Blood Pressure (90/60-120/80) 138/54 H 153/56 H 149/69 H Blood Pressure Mean (mm Hg) 82 88 95 Source Monitor Monitor Position Sitting Sitting Blood Pressure Location Right Arm Right Arm History Since Last Visit- (Skip if this is Patient's initial visit) Have you changed medications since your No No No last visit? Any new allergies or adverse reactions No No No Had a fall/change in ADL's that may No No No increase risk of falls Signs or symptoms of abuse and/or No No No neglect since last visit Have you been in the hospital since your No No No last visit? Has dressing in place as prescribed Yes Yes Yes Has compression in place as prescribed N/A N/A N/A Has offloadiing in place as prescribed N/A N/A N/A Experienced any changes in pain level or No No No management Left Footwear Regular Shoe Regular Shoe Right Footwear Regular Shoe Regular Shoe Pain Scale: 0-10 Numeric Is Patient Pain Free? Yes Yes 05/25/21 05/30/21 13:20 11:24 WC - Today's Visit Information Type of service Nurse-only Follow-up Visit Visit (Physician/CHANGE CONTROL COORDINATOR ) Arrival Mode Wheelchair Wheelchair Transfer Assistance None None Patient Identification Verified (Name & Yes No ) Patient Requires Transmission-Based No No Precautions Safety Precautions NA NA Height and Weight Body Mass Index (BMI) 73.7 73.7 BMI Classification Obese Obese Vital Signs Temperature (97.8 F-99.1 F) 97.6 F L 97.2 F L Temperature Source Temporal Temporal Pulse Rate (60-100) 85 100 Pulse Location Monitor Respiratory Rate (12-18) 18 18 Respiratory rate source Observation Blood Pressure (90/60-120/80) 148/65 H 141/71 H Blood Pressure Mean (mm Hg) 92 94 Source Monitor Position Sitting Blood Pressure Location Right Arm History Since Last Visit- (Skip if this is Patient's initial visit) Have you changed medications since your No No last visit? Any new allergies or adverse reactions No No Had a fall/change in ADL's that may No No increase risk of falls Signs or symptoms of abuse and/or No No neglect since last visit Have you been in the hospital since your No No last visit? Has dressing in place as prescribed Yes Yes Has compression in place as prescribed N/A N/A Has offloadiing in place as prescribed N/A N/A Experienced any changes in pain level or No No management Left Footwear Slipper Right Footwear Slipper Pain Scale: 0-10 Numeric Is Patient Pain Free? Yes - Nurse 1 - General Ulcer Measurement Start: 05/16/21 08:04 Freq: Status: Active Protocol: Activity Type Activity Date Activity User E-Sign Co-Sign Detail Recorded Client Recorded Date Recorded By Document 05/23/21 08:37 KR [id number] 05/23/21 08:39 KR Document 05/30/21 11:24 ML [id number] 05/30/21 11:36 ML 05/23/21 05/30/21 08:37 11:24 Wound Center Nurse 1 #1- L LOWER ABDOMEN -Current Size (cm) - Length 2.1 1.2 -Current Size (cm) - Width 2.6 2.8 -Current Size (cm) - Depth 5.5 3.8 -Total Square Cm 5.46 3.36 -Exudate Amt Large Large -Exudate Type Serosanguineous Serosanguineous -Wound Margin Distinct, Distinct, Outline Outline Attached Attached -Granulation Amt Medium (34-66%) Medium (34-66%) -Granulation Quality Red -Slough/Fibrin Yes -Necrosis Amt Medium (34-66%) Medium (34-66%) -Necrotic Tissue Type Adherent Slough -Texture (Kristal-wound Skin Appearance) Assessed, Assessed Scarring -Moisture (Kristal-wound Skin Appearance) No Abnormality, Assessed -Color (Kristal-wound Skin Appearance) No Abnormality, Assessed Assessed -Temperature (Kristal-wound Skin No Abnormality No Abnormality Appearance) (Pt Warm) (Pt Warm) -Tenderness on Palpation (Kristal-wound No Yes Skin Appearance) -Ulcer Cleansing Rinsed/ Wound Cleanser Irrigated with Saline -Foul Odor after Cleansing No No -Anesthetic Used 4% Lidocaine 4% Lidocaine Solution Solution WC - Nurse 2 - General Ulcer CM Notes Start: 05/16/21 08:04 Freq: Status: Active Protocol: Activity Type Activity Date Activity User E-Sign Co-Sign Detail Recorded Client Recorded Date Recorded By Document 05/16/21 08:23 MW [id number] 05/16/21 08:36 MW Document 05/23/21 09:12 MW [id number] 05/23/21 09:17 MW Document 05/30/21 11:42 MW [id number] 05/30/21 11:45 MW 05/16/21 05/23/21 05/30/21 08:23 09:12 11:42 Wound Center Nurse 2 #1- L LOWER ABDOMEN -Time 08:24 09:13 11:43 -Correct Patient Yes Yes Yes -Correct Side, Site, Position Yes Yes Yes -Correct Procedure Yes Yes Yes -Procedure Performed Yes Yes Yes -Type of Procedure Debridement Debridement Debridement -Clinical Debridement Subcutaneous Subcutaneous Subcutaneous -Tissue Removed Subcutaneous Subcutaneous Subcutaneous -Post Debridement (cm) - Length 2.0 1.5 1.5 -Post Debridement (cm) - Width 2.5 3.0 2.5 -Post Debridement (cm) - Depth 5.6 5.5 1.5 -Total Square (Post) (cm) 5.00 4.50 3.75 -Area of Debridement (cm) - Length 2.0 1.5 1.5 -Area of Debridement (cm) - Width 2.5 3.0 2.5 -Total Square (Area) (cm) 5.00 4.50 3.75 -Tunneling No No Yes -Tunneling Position (O'clock) 1 -Tunneling Distance (cm) 5.0 -Undermining/Tunneling No No No -Circular Undermining No No No -Wound/Ulcer Outcome Not Healed Not Healed Not Healed -Ulcer Cleansing Rinsed/ Rinsed/ Rinsed/ Irrigated with Irrigated with Irrigated with Saline Saline Saline -Foul Odor after Cleansing No No No -Bioengineered Tissue No No No -Bleeding Controlled with Pressure Pressure Pressure -Offloading No No No -Treatment Response Procedure Procedure Procedure Tolerated Well Tolerated Well Tolerated Well -Debridement - Subq, 1st 20sq cm Yes Yes Yes Pain Scale: 0-10 Numeric Is Patient Pain Free? Yes Yes Yes WC - Nurse 3 - General Ulcer D/C NN Start: 05/16/21 08:04 Freq: Status: Active Protocol: Activity Type Activity Date Activity User E-Sign Co-Sign Detail Recorded Client Recorded Date Recorded By Document 05/16/21 08:37 MW [id number] 05/16/21 08:43 MW Document 05/23/21 09:46 BMF [id number] 05/23/21 09:47 BMF Document 05/25/21 11:51 ML [id number] 05/25/21 11:52 ML Document 05/25/21 13:20 PL [id number] 05/25/21 13:22 PL Document 05/30/21 11:57 DL [id number] 05/30/21 11:58 DL 05/16/21 05/23/21 05/25/21 08:37 09:46 11:51 Wound Care Nurse 3 #1- L LOWER ABDOMEN -Ulcer Cleansing Rinsed/ Rinsed/ Wound Cleanser Irrigated with Irrigated with Saline Saline -Foul Odor after Cleansing No No No -Negative Pressure Wound Therapy N/A Continue -Setting (mmHg) 125 -Negative Pressure is Continuous Continuous -Primary Dressing Applied Aquacel AG 4x4 Other -Other Dressing white foam and black foam used perorder -Primary Dressing Covered/Secured with Secured with Tape -Other Covering abd -NPWT Application Charge ($) NPWT </= 50 sq NPWT </= 50 sq cm cm -Aquacel AG 4x4 2 Treatment Response Procedure Procedure Tolerated Well Tolerated Well Vital Signs Temperature (97.8 F-99.1 F) 97.8 F Temperature Source Temporal Pulse Rate (60-100) 89 Pulse Location Monitor Respiratory Rate (12-18) 16 Respiratory rate source Observation Blood Pressure (90/60-120/80) 149/69 H Blood Pressure Mean (mm Hg) 95 Source Monitor Position Sitting Blood Pressure Location Right Arm Pain Scale: 0-10 Numeric Is Patient Pain Free? Yes Yes Teaching: Wound Center Dressing Your Wound -Person Taught Patient -Teaching Method Discussion, Demonstration -Response to teaching Verbalize understanding WC - Visit Discharge Discharge Condition Stable Stable Ambulatory Status Wheelchair Wheelchair Transportation [employer] Accompanied by mom Medication Reconcilliation completed & No provided to patient/care provider Clinical Summary of Care Provided Yes 05/25/21 05/30/21 13:20 11:57 Wound Care Nurse 3 #1- L LOWER ABDOMEN -Ulcer Cleansing Rinsed/ Wound Cleanser Irrigated with Saline -Foul Odor after Cleansing No No -Negative Pressure Wound Therapy Continue Continue -Setting (mmHg) 125 150 -Negative Pressure is Continuous Continuous -Primary Dressing Applied -Other Dressing -Primary Dressing Covered/Secured with -Other Covering -NPWT Application Charge ($) NPWT </= 50 sq NPWT </= 50 sq cm cm -Aquacel AG 4x4 Treatment Response Procedure Tolerated Well Vital Signs Temperature (97.8 F-99.1 F) 97.6 F L Temperature Source Temporal Pulse Rate (60-100) 85 Pulse Location Respiratory Rate (12-18) 18 Respiratory rate source Blood Pressure (90/60-120/80) 148/65 H Blood Pressure Mean (mm Hg) 92 Source Position Blood Pressure Location Pain Scale: 0-10 Numeric Is Patient Pain Free? Yes Yes Teaching: Wound Center Dressing Your Wound -Person Taught -Teaching Method -Response to teaching WC - Visit Discharge Discharge Condition Stable Stable Ambulatory Status Wheelchair Ambulatory Transportation [employer] Accompanied by Medication Reconcilliation completed & provided to patient/care provider Clinical Summary of Care Provided Yes Wound debrided: Abdominal wound cluster Type of Debridement: Excisional debridement Anesthesia Used: 5% Lidocaine Gel Depth: Down to and including healthy tissue, in the subcutaneous layer and to muscle Percentage of wound debrided: 100 Instrument Used: 5mm curette Tissue Removed: Fibrin Severity: Fat Layer Exposed Amount of bleeding with debridement: Mild Bleeding Controlled with: Pressure Patient tolerated procedure: Patient tolerated procedure well Assessment/Plan Assessment/Plan (1) Morbid obesity with body mass index (BMI) of 60.0 to 69.9 in adult: CODE(S): E66.01 - Morbid (severe) obesity due to excess calories; Z68.44 - Body mass index [BMI] 60.0-69.9, adult (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: CODE(S): Z79.01 - half-way (current) use of anticoagulants (3) Nonhealing nonsurgical wound with fat layer exposed: CODE(S): T14.8XXA - Other injury of unspecified body region, initial encounter PLAN: Reapply the wound VAC at 150 mmHg with the white packing Follow-up in 1 week Finish the antibiotics (4) Wound, open, abdominal wall, anterior: CODE(S): S31.109A - Unspecified open wound of abdominal wall, unspecified quadrant without penetration into peritoneal cavity, initial encounter QUALIFIERS: Encounter type: initial encounter Qualified Code(s): S31.109A - Unspecified open wound of abdominal wall, unspecified quadrant without penetration into peritoneal cavity, initial encounter
[2021-06-06 09:07] VITALS: BP 142/63; PULSE 85; RESP 18; TEMP 36.1; BMI 73.7
--- NOTE | 2021-06-06 11:28 | PCM.WC.PN ---
History of Present Illness Date of Service: 06/06/21 Chief Complaint: Follow-up abdominal wounds left lower quadrant History of Wound: 55-year-old morbid obese woman with history of endometrial cancer that received radiation therapy in the last year. She has healed radiation mcneil all over her abdomen. She has developed cellulitis in her abdominal area and then 2 areas opened about 2 months ago and now connecting underneath the skin with tunneling. She has been seen in the emergency room and was sent to rehab for wound care. She has been taking we think ciprofloxacin as an antibiotic and has been packing it with new gauze. She is currently on Xarelto blood thinners . Progress of Wound: We started her on a wound VAC approximately 2 weeks ago but the black packing material was getting stuck in the wound. We changed to the white packing that will not stick the wound is much improving we have increased pressure from 1 25-1 50 tolerating very well. We also have anaerobes in the wound so we started her on metronidazole she is completed her metronidazole. Subjective Subjective Patient has no concerns doing well Objective Data Objective Data Tunneling is improving patient is tolerant to the higher pressure we will continue the wound VAC Vital Signs: Vital Signs Temp Pulse Resp BP 96.9 F L 85 18 142/63 H 06/06/21 09:07 06/06/21 09:07 06/06/21 09:07 06/06/21 09:07 Weight: 416 lb Body Mass Index (BMI) 73.7 Physical Exam Const oriented x3 General Appearance: cooperative Exam Limitations: no limitations Resp normal respiratory effort Effort and Inspection: able to speak in complete sentences Auscultation: clear to auscultation bilaterally Cardio regular rate and regular rhythm Palpation: normal PMI Rate: regular rate Rhythm: regular rhythm Skin Wounds: wounds noted Neuro oriented x3 Psych Appearance: grossly normal Speech: normal speech Thought Content: normal thought content Judgement: judgement good Debridement Note Debridement Note Post-Debridement Measurements and Additional Note: Post-Debridement Measurements/Treatment WC - Nurse 1 - General Ulcer Assessment Start: 05/16/21 08:04 Freq: Status: Active Protocol: JODY.MELISSA Activity Type Activity Date Activity User E-Sign Co-Sign Detail Recorded Client Recorded Date Recorded By Document 05/16/21 08:08 PL [id number] 05/16/21 08:25 PL Document 05/23/21 08:37 KR [id number] 05/23/21 08:39 KR Document 05/25/21 11:51 ML [id number] 05/25/21 11:52 ML Document 05/25/21 13:20 PL [id number] 05/25/21 13:22 PL Document 05/30/21 11:24 ML [id number] 05/30/21 11:36 ML Document 06/06/21 09:07 RB [id number] 06/06/21 09:10 RB 05/16/21 05/23/21 05/25/21 08:08 08:37 11:51 WC - Today's Visit Information Type of service Follow-up Visit Follow-up Visit Nurse-only (Physician/ROTOR ASSEMBLER (Physician/ROTOR ASSEMBLER Visit ) ) Arrival Mode Wheelchair Wheelchair Wheelchair Transfer Assistance Manual None Patient Identification Verified (Name & Yes Yes Yes ) Patient Requires Transmission-Based No No Precautions Safety Precautions NA NA Height and Weight Body Mass Index (BMI) 73.7 73.7 73.7 BMI Classification Obese Obese Obese Vital Signs Temperature (97.8 F-99.1 F) 98.8 F 96.9 F L 97.8 F Temperature Source Temporal Temporal Temporal Pulse Rate (60-100) 87 96 89 Pulse Location Monitor Monitor Respiratory Rate (12-18) 18 16 Respiratory rate source Observation Blood Pressure (90/60-120/80) 138/54 H 153/56 H 149/69 H Blood Pressure Mean (mm Hg) 82 88 95 Source Monitor Monitor Position Sitting Sitting Blood Pressure Location Right Arm Right Arm History Since Last Visit- (Skip if this is Patient's initial visit) Have you changed medications since your No No No last visit? Any new allergies or adverse reactions No No No Had a fall/change in ADL's that may No No No increase risk of falls Signs or symptoms of abuse and/or No No No neglect since last visit Have you been in the hospital since your No No No last visit? Has dressing in place as prescribed Yes Yes Yes Has compression in place as prescribed N/A N/A N/A Has offloadiing in place as prescribed N/A N/A N/A Experienced any changes in pain level or No No No management Left Footwear Regular Shoe Regular Shoe Right Footwear Regular Shoe Regular Shoe Pain Scale: 0-10 Numeric Is Patient Pain Free? Yes Yes 05/25/21 05/30/21 06/06/21 13:20 11:24 09:07 - Today's Visit Information Type of service Nurse-only Follow-up Visit Follow-up Visit Visit (Physician/ROTOR ASSEMBLER (Physician/ROTOR ASSEMBLER ) ) Arrival Mode Wheelchair Wheelchair Wheelchair Transfer Assistance None None None Patient Identification Verified (Name & Yes No Yes ) Patient Requires Transmission-Based No No No Precautions Safety Precautions NA NA Height and Weight Body Mass Index (BMI) 73.7 73.7 73.7 BMI Classification Obese Obese Obese Vital Signs Temperature (97.8 F-99.1 F) 97.6 F L 97.2 F L 96.9 F L Temperature Source Temporal Temporal Temporal Pulse Rate (60-100) 85 100 85 Pulse Location Monitor Monitor Respiratory Rate (12-18) 18 18 18 Respiratory rate source Observation Observation Blood Pressure (90/60-120/80) 148/65 H 141/71 H 142/63 H Blood Pressure Mean (mm Hg) 92 94 89 Source Monitor Monitor Position Sitting Semi-Fowlers Blood Pressure Location Right Arm Left Arm History Since Last Visit- (Skip if this is Patient's initial visit) Have you changed medications since your No No No last visit? Any new allergies or adverse reactions No No No Had a fall/change in ADL's that may No No No increase risk of falls Signs or symptoms of abuse and/or No No No neglect since last visit Have you been in the hospital since your No No No last visit? Has dressing in place as prescribed Yes Yes Yes Has compression in place as prescribed N/A N/A No Has offloadiing in place as prescribed N/A N/A No Experienced any changes in pain level or No No No management Left Footwear Slipper Regular Shoe Right Footwear Slipper Regular Shoe Pain Scale: 0-10 Numeric Is Patient Pain Free? Yes Yes - Nurse 1 - General Ulcer Measurement Start: 05/16/21 08:04 Freq: Status: Active Protocol: Activity Type Activity Date Activity User E-Sign Co-Sign Detail Recorded Client Recorded Date Recorded By Document 05/23/21 08:37 KR [id number] 05/23/21 08:39 KR Document 05/30/21 11:24 ML [id number] 05/30/21 11:36 ML Document 06/06/21 09:07 RB [id number] 06/06/21 09:10 RB 05/23/21 05/30/21 06/06/21 08:37 11:24 09:07 Wound Center Nurse 1 #1- L LOWER ABDOMEN -Combined with other wound No -Current Size (cm) - Length 2.1 1.2 0.3 -Current Size (cm) - Width 2.6 2.8 0.9 -Current Size (cm) - Depth 5.5 3.8 6 -Total Square Cm 5.46 3.36 0.27 -Tunneling No -Undermining/Tunneling No -Circular Undermining No -Exudate Amt Large Large Medium -Exudate Type Serosanguineous Serosanguineous Serosanguineous -Wound Margin Distinct, Distinct, Thickened & Outline Outline Rolled Under Attached Attached -Granulation Amt Medium (34-66%) Medium (34-66%) Medium (34-66%) -Granulation Quality [place] -Slough/Fibrin Yes Yes -Necrosis Amt Medium (34-66%) Medium (34-66%) Small (1-33%) -Necrotic Tissue Type Adherent Slough Adherent Slough -Structure Exposed N/A -Texture (Kristal-wound Skin Appearance) Assessed, Assessed Assessed Scarring -Moisture (Kristal-wound Skin Appearance) No Abnormality, Assessed Assessed -Color (Kristal-wound Skin Appearance) No Abnormality, Assessed Assessed Assessed -Temperature (Kristal-wound Skin No Abnormality No Abnormality No Abnormality Appearance) (Pt Warm) (Pt Warm) (Pt Warm) -Tenderness on Palpation (Kristal-wound No Yes No Skin Appearance) -Ulcer Cleansing Rinsed/ Wound Cleanser Wound Cleanser Irrigated with Saline -Foul Odor after Cleansing No No No -Anesthetic Used 4% Lidocaine 4% Lidocaine 5% Lidocaine Solution Solution Gel WC - Nurse 2 - General Ulcer CM Notes Start: 05/16/21 08:04 Freq: Status: Active Protocol: Activity Type Activity Date Activity User E-Sign Co-Sign Detail Recorded Client Recorded Date Recorded By Document 05/16/21 08:23 MW [id number] 05/16/21 08:36 MW Document 05/23/21 09:12 MW [id number] 05/23/21 09:17 MW Document 05/30/21 11:42 MW [id number] 05/30/21 11:45 MW Document 06/06/21 09:35 MW [id number] 06/06/21 09:37 MW 05/16/21 05/23/21 05/30/21 08:23 09:12 11:42 Wound Center Nurse 2 #1- L LOWER ABDOMEN -Time 08:24 09:13 11:43 -Correct Patient Yes Yes Yes -Correct Side, Site, Position Yes Yes Yes -Correct Procedure Yes Yes Yes -Procedure Performed Yes Yes Yes -Type of Procedure Debridement Debridement Debridement -Clinical Debridement Subcutaneous Subcutaneous Subcutaneous -Tissue Removed Subcutaneous Subcutaneous Subcutaneous -Post Debridement (cm) - Length 2.0 1.5 1.5 -Post Debridement (cm) - Width 2.5 3.0 2.5 -Post Debridement (cm) - Depth 5.6 5.5 1.5 -Total Square (Post) (cm) 5.00 4.50 3.75 -Area of Debridement (cm) - Length 2.0 1.5 1.5 -Area of Debridement (cm) - Width 2.5 3.0 2.5 -Total Square (Area) (cm) 5.00 4.50 3.75 -Tunneling No No Yes -Tunneling Position (O'clock) 1 -Tunneling Distance (cm) 5.0 -Undermining/Tunneling No No No -Circular Undermining No No No -Wound/Ulcer Outcome Not Healed Not Healed Not Healed -Ulcer Cleansing Rinsed/ Rinsed/ Rinsed/ Irrigated with Irrigated with Irrigated with Saline Saline Saline -Foul Odor after Cleansing No No No -Bioengineered Tissue No No No -Bleeding Controlled with Pressure Pressure Pressure -Offloading No No No -Treatment Response Procedure Procedure Procedure Tolerated Well Tolerated Well Tolerated Well -Debridement - Subq, 1st 20sq cm Yes Yes Yes Pain Scale: 0-10 Numeric Is Patient Pain Free? Yes Yes Yes 06/06/21 09:35 Wound Center Nurse 2 #1- L LOWER ABDOMEN -Time 09:36 -Correct Patient Yes -Correct Side, Site, Position Yes -Correct Procedure Yes -Procedure Performed Yes -Type of Procedure Debridement -Clinical Debridement Subcutaneous -Tissue Removed Subcutaneous -Post Debridement (cm) - Length 2.4 -Post Debridement (cm) - Width 2.5 -Post Debridement (cm) - Depth 1.8 -Total Square (Post) (cm) 6.00 -Area of Debridement (cm) - Length 2.4 -Area of Debridement (cm) - Width 2.5 -Total Square (Area) (cm) 6.00 -Tunneling Yes -Tunneling Position (O'clock) 1 -Tunneling Distance (cm) 4.5 -Undermining/Tunneling No -Circular Undermining No -Wound/Ulcer Outcome Not Healed -Ulcer Cleansing Rinsed/ Irrigated with Saline -Foul Odor after Cleansing No -Bioengineered Tissue No -Bleeding Controlled with Pressure -Offloading No -Treatment Response -Debridement - Subq, 1st 20sq cm Yes Pain Scale: 0-10 Numeric Is Patient Pain Free? Yes WC - Nurse 3 - General Ulcer D/C NN Start: 05/16/21 08:04 Freq: Status: Active Protocol: Activity Type Activity Date Activity User E-Sign Co-Sign Detail Recorded Client Recorded Date Recorded By Document 05/16/21 08:37 MW [id number] 05/16/21 08:43 MW Document 05/23/21 09:46 BMF [id number] 05/23/21 09:47 BMF Document 05/25/21 11:51 ML [id number] 05/25/21 11:52 ML Document 05/25/21 13:20 PL [id number] 05/25/21 13:22 PL Document 05/30/21 11:57 DL [id number] 05/30/21 11:58 DL Document 06/06/21 10:07 RB [id number] 06/06/21 10:08 RB 05/16/21 05/23/21 05/25/21 08:37 09:46 11:51 Wound Care Nurse 3 #1- L LOWER ABDOMEN -Ulcer Cleansing Rinsed/ Rinsed/ Wound Cleanser Irrigated with Irrigated with Saline Saline -Foul Odor after Cleansing No No No -Negative Pressure Wound Therapy N/A Continue -Setting (mmHg) 125 -Negative Pressure is Continuous Continuous -Primary Dressing Applied Aquacel AG 4x4 Other -Other Dressing white foam and black foam used perorder -Primary Dressing Covered/Secured with Secured with Tape -Other Covering abd -NPWT Application Charge ($) NPWT </= 50 sq NPWT </= 50 sq cm cm -Aquacel AG 4x4 2 Treatment Response Procedure Procedure Tolerated Well Tolerated Well Vital Signs Temperature (97.8 F-99.1 F) 97.8 F Temperature Source Temporal Pulse Rate (60-100) 89 Pulse Location Monitor Respiratory Rate (12-18) 16 Respiratory rate source Observation Blood Pressure (90/60-120/80) 149/69 H Blood Pressure Mean (mm Hg) 95 Source Monitor Position Sitting Blood Pressure Location Right Arm Pain Scale: 0-10 Numeric Is Patient Pain Free? Yes Yes Teaching: Wound Center Dressing Your Wound -Person Taught Patient -Teaching Method Discussion, Demonstration -Response to teaching Verbalize understanding WC - Visit Discharge Discharge Condition Stable Stable Ambulatory Status Wheelchair Wheelchair Transportation Private Auto Private Auto Accompanied by mom Medication Reconcilliation completed & No provided to patient/care provider Clinical Summary of Care Provided Yes 05/25/21 05/30/21 06/06/21 13:20 11:57 10:07 Wound Care Nurse 3 #1- L LOWER ABDOMEN -Ulcer Cleansing Rinsed/ Wound Cleanser Wound Cleanser Irrigated with Saline -Foul Odor after Cleansing No No -Negative Pressure Wound Therapy Continue Continue Continue -Setting (mmHg) 125 150 150 -Negative Pressure is Continuous Continuous Continuous -Primary Dressing Applied -Other Dressing -Primary Dressing Covered/Secured with -Other Covering -NPWT Application Charge ($) NPWT </= 50 sq NPWT </= 50 sq NPWT </= 50 sq cm cm cm -Aquacel AG 4x4 Treatment Response Procedure Procedure Tolerated Well Tolerated Well Vital Signs Temperature (97.8 F-99.1 F) 97.6 F L Temperature Source Temporal Pulse Rate (60-100) 85 Pulse Location Respiratory Rate (12-18) 18 Respiratory rate source Blood Pressure (90/60-120/80) 148/65 H Blood Pressure Mean (mm Hg) 92 Source Position Blood Pressure Location Pain Scale: 0-10 Numeric Is Patient Pain Free? Yes Yes Yes Teaching: Wound Center Dressing Your Wound -Person Taught -Teaching Method -Response to teaching WC - Visit Discharge Discharge Condition Stable Stable Stable Ambulatory Status Wheelchair Ambulatory Wheelchair Transportation Private Auto Change Healthcare Private Auto Accompanied by Medication Reconcilliation completed & No provided to patient/care provider Clinical Summary of Care Provided Yes Yes Wound debrided: Right abdominal wound cluster Type of Debridement: Excisional debridement Anesthesia Used: 5% Lidocaine Gel Depth: Down to and including healthy tissue and in the subcutaneous layer Percentage of wound debrided: 100 Instrument Used: 5mm curette Tissue Removed: Fibrin Severity: Fat Layer Exposed Amount of bleeding with debridement: Mild Bleeding Controlled with: Compression and gauze Patient tolerated procedure: Patient tolerated procedure well Assessment/Plan Assessment/Plan (1) Morbid obesity with body mass index (BMI) of 60.0 to 69.9 in adult: CODE(S): E66.01 - Morbid (severe) obesity due to excess calories; Z68.44 - Body mass index [BMI] 60.0-69.9, adult (2) snf (current) use of anticoagulants: CODE(S): Z79.01 - truck terminal manager (current) use of anticoagulants (3) Nonhealing nonsurgical wound with fat layer exposed: CODE(S): T14.8XXA - Other injury of unspecified body region, initial encounter PLAN: Reapply the wound VAC at 150 mmHg with the white packing Follow-up in 1 week (4) Wound, open, abdominal wall, anterior: CODE(S): S31.109A - Unspecified open wound of abdominal wall, unspecified quadrant without penetration into peritoneal cavity, initial encounter QUALIFIERS: Encounter type: initial encounter Qualified Code(s): S31.109A - Unspecified open wound of abdominal wall, unspecified quadrant without penetration into peritoneal cavity, initial encounter
== END 2021-06-09 23:59 ==
LOC: WC 09:00
PROVIDERS: PCP Family Medicine; Visit Provider Nurse Practitioner
DX: L03.311 Cellulitis of abdominal wall (principal); E66.01 Morbid (severe) obesity due to excess calories; Z92.3 Personal history of irradiation; Z85.42 Personal history of malignant neoplasm of other parts of uterus; Z79.01 Long term (current) use of anticoagulants; Z68.45 Body mass index [BMI] 70 or greater, adult; T81.49XA Infection following a procedure, other surgical site, initial encounter; Y83.8 Other surgical procedures as the cause of abnormal reaction of the patient, or of later complication, without mention of misadventure at the time of the procedure
CPT/HCPCS: 11042; 97605

== ENCOUNTER 2021-06-20 08:30 | Outpatient (RCR) | payer MEDICARE, MEDICAID, SELFPAY ==
[2021-06-10 00:33] VITALS: BP 142/63; PULSE 85; RESP 18; TEMP 36.1
[2021-06-13 08:27] VITALS: BP 154/57; TEMP 537.2; TEMP 999; BMI 73.7
--- NOTE | 2021-06-13 09:54 | PN.PCM_ITS ---
History of Present Illness Date of Service: 06/13/21 Chief Complaint: Follow-up abdominal wounds left lower quadrant History of Wound: 55-year-old morbid obese woman with history of endometrial cancer that received radiation therapy in the last year. She has healed radiation mcneil all over her abdomen. She has developed cellulitis in her abdominal area and then 2 areas opened about 2 months ago and now connecting underneath the skin with tunneling. She has been seen in the emergency room and was sent to rehab for wound care. She has been taking we think ciprofloxacin as an antibiotic and has been packing it with new gauze. She is currently on Xarelto blood thinners . Progress of Wound: The secondary hole is closed and our working on the primary still has tunneling is improving is becoming smaller. Patient states in 2 weeks is having a total abdominal hysterectomy with oophorectomy. They are not going to do it laparoscopically either and so I do not know how this is going involved in the abdominal wound we are dealing with. Subjective Subjective Patient is doing well denies any issues with the wound VAC has been reinforcing it may be on the last few days. Objective Data Objective Data Wound cleans easily bleeds easily debrided easily no slough no smell noted still has positive depth the one hole has closed that was a through and through. Vital Signs: Vital Signs Temp Pulse Resp BP 999 F H 85 18 154/57 H 06/13/21 08:27 06/10/21 00:33 06/10/21 00:33 06/13/21 08:27 Weight: 416 lb Body Mass Index (BMI) 73.7 Lab / Micro Data Attestation: I reviewed the patient's lab results. Physical Exam Const oriented x3 General Appearance: cooperative Exam Limitations: no limitations Resp normal respiratory effort Effort and Inspection: able to speak in complete sentences Auscultation: clear to auscultation bilaterally Cardio regular rate and regular rhythm Palpation: normal PMI Rate: regular rate Rhythm: regular rhythm Skin Wounds: wounds noted Neuro oriented x3 Psych Appearance: grossly normal Speech: normal speech Thought Content: normal thought content Judgement: judgement good Debridement Note Debridement Note Post-Debridement Measurements and Additional Note: Post-Debridement Measurements/Treatment JODY - Nurse 1 - General Ulcer Assessment Start: 06/13/21 08:27 Freq: Status: Active Protocol: OSKAR Activity Type Activity Date Activity User E-Sign Co-Sign Detail Recorded Client Recorded Date Recorded By Document 06/13/21 08:27 MASSIEL [id number] 06/13/21 08:40 NV 06/13/21 08:27 WC - Today's Visit Information Type of service Follow-up Visit (Physician/[employer] MANAGER ) Arrival Mode Wheelchair Accompanied by mother Patient Identification Verified (Name & Yes ) Height and Weight Body Mass Index (BMI) 73.7 BMI Classification Obese Vital Signs Temperature (97.8 F-99.1 F) 999 F H Temperature Source Temporal Pulse Location Apical Blood Pressure (90/60-120/80) 154/57 H Blood Pressure Mean (mm Hg) 89 Source Monitor History Since Last Visit- (Skip if this is Patient's initial visit) Have you changed medications since your No last visit? Any new allergies or adverse reactions No Had a fall/change in ADL's that may No increase risk of falls Signs or symptoms of abuse and/or No neglect since last visit Have you been in the hospital since your No last visit? Has dressing in place as prescribed Yes Has compression in place as prescribed N/A Has offloadiing in place as prescribed N/A Experienced any changes in pain level or No management Left Footwear Regular Shoe Right Footwear Regular Shoe WC - Nurse 1 - General Ulcer Measurement Start: 06/13/21 08:27 Freq: Status: Active Protocol: Activity Type Activity Date Activity User E-Sign Co-Sign Detail Recorded Client Recorded Date Recorded By Document 06/13/21 08:27 MASSIEL [id number] 06/13/21 08:40 NV 06/13/21 08:27 Wound Center Nurse 1 #1- L LOWER ABDOMEN -Combined with other wound No -Current Size (cm) - Length 0.5 -Current Size (cm) - Width 1.1 -Current Size (cm) - Depth 2.3 -Total Square Cm 0.55 -Photo Taken No -Epithelialization None Present -Tunneling Yes -Tunneling Position (O'clock) 1 -Tunneling Distance (cm) 5 -Undermining/Tunneling No -Wound Margin Distinct, Outline Attached -Granulation Amt Small (1-33%) -Granulation Quality Red -Slough/Fibrin No -Necrosis Amt None Present (0 %) -Structure Exposed N/A -Texture (Kristal-wound Skin Appearance) No Abnormality, Assessed -Moisture (Kristal-wound Skin Appearance) No Abnormality, Assessed -Color (Kristal-wound Skin Appearance) No Abnormality, Assessed -Temperature (Kristal-wound Skin No Abnormality Appearance) (Pt Warm) -Tenderness on Palpation (Kristal-wound No Skin Appearance) -Ulcer Cleansing soap and water -Anesthetic Used 4% Lidocaine Solution - Nurse 2 - General Ulcer CM Notes Start: 06/13/21 08:27 Freq: Status: Active Protocol: Activity Type Activity Date Activity User E-Sign Co-Sign Detail Recorded Client Recorded Date Recorded By Document 06/13/21 08:49 MW [id number] 06/13/21 08:50 MW 06/13/21 08:49 Wound Center Nurse 2 -Time 08:49 -Correct Patient Yes -Correct Side, Site, Position Yes -Correct Procedure Yes -Procedure Performed Yes -Type of Procedure Debridement -Clinical Debridement Subcutaneous -Tissue Removed Subcutaneous -Post Debridement (cm) - Length 0.4 -Post Debridement (cm) - Width 1.0 -Post Debridement (cm) - Depth 4.4 -Total Square (Post) (cm) 0.40 -Area of Debridement (cm) - Length 0.4 -Area of Debridement (cm) - Width 1.0 -Total Square (Area) (cm) 0.40 -Tunneling No -Undermining/Tunneling No -Circular Undermining No -Wound/Ulcer Outcome Not Healed -Ulcer Cleansing Rinsed/ Irrigated with Saline -Foul Odor after Cleansing No -Bioengineered Tissue No -Bleeding Controlled with Pressure -Offloading No -Treatment Response Procedure Tolerated Well -Debridement - Subq, 1st 20sq cm Yes Pain Scale: 0-10 Numeric Is Patient Pain Free? Yes - Nurse 3 - General Ulcer D/C NN Start: 06/13/21 08:27 Freq: Status: Active Protocol: Activity Type Activity Date Activity User E-Sign Co-Sign Detail Recorded Client Recorded Date Recorded By Document 06/13/21 09:13 PL [id number] 06/13/21 09:13 PL 06/13/21 09:13 Wound Care Nurse 3 #1- L LOWER ABDOMEN -Ulcer Cleansing Rinsed/ Irrigated with Saline -Foul Odor after Cleansing No -Negative Pressure Wound Therapy Continue -Setting (mmHg) 150 -Negative Pressure is Continuous -NPWT Application Charge ($) NPWT </= 50 sq cm WC - Visit Discharge Discharge Condition Stable Ambulatory Status Wheelchair Transportation Private Auto Clinical Summary of Care Provided Yes Wound debrided: Left lower abdominal wound Type of Debridement: Excisional debridement Anesthesia Used: 5% Lidocaine Gel Depth: Down to and including healthy tissue and in the subcutaneous layer Percentage of wound debrided: 100 Instrument Used: 3mm curette Tissue Removed: Fibrin Severity: Fat Layer Exposed Amount of bleeding with debridement: Mild Bleeding Controlled with: Compression and gauze Patient tolerated procedure: Patient tolerated procedure well Assessment/Plan Assessment/Plan (1) Morbid obesity with body mass index (BMI) of 60.0 to 69.9 in adult: CODE(S): E66.01 - Morbid (severe) obesity due to excess calories; Z68.44 - Body mass index [BMI] 60.0-69.9, adult (2) skilled nursing (current) use of anticoagulants: CODE(S): Z79.01 - skilled nursing (current) use of anticoagulants (3) Nonhealing nonsurgical wound with fat layer exposed: CODE(S): T14.8XXA - Other injury of unspecified body region, initial encounter PLAN: Reapply the wound VAC at 150 mmHg with the white packing Follow-up in 1 week (4) Wound, open, abdominal wall, anterior: CODE(S): S31.109A - Unspecified open wound of abdominal wall, unspecified quadrant without penetration into peritoneal cavity, initial encounter QUALIFIERS: Encounter type: initial encounter Qualified Code(s): S31.109A - Unspecified open wound of abdominal wall, unspecified quadrant without penetration into peritoneal cavity, initial encounter
[2021-06-20 08:42] VITALS: BP 140/100; PULSE 97; RESP 18; TEMP 36.1; BMI 73.7
--- NOTE | 2021-06-20 09:34 | PN.PCM_ITS ---
History of Present Illness Date of Service: 06/20/21 Chief Complaint: Follow-up abdominal wounds left lower quadrant History of Wound: 55-year-old morbid obese woman with history of endometrial cancer that received radiation therapy in the last year. She has healed radiation mcneil all over her abdomen. She has developed cellulitis in her abdominal area and then 2 areas opened about 2 months ago and now connecting underneath the skin with tunneling. She has been seen in the emergency room and was sent to rehab for wound care. She has been taking we think ciprofloxacin as an antibiotic and has been packing it with new gauze. She is currently on Xarelto blood thinners . Progress of Wound: We have been using the wound VAC and the secondary hole is closed and working on the primary still has tunneling which has improved and is becoming smaller. Patient states in 1 weeks is having a total abdominal hysterectomy with oophorectomy. They are not going to do it laparoscopically either and so I do not know how this is going involved in the abdominal wound we are dealing with. We will have her stop the wound VAC on Friday the surgery is on Friday and have her mail back the wound VAC. We are not sure how they were going to open her but were hoping that they will close this wound along with the abdominal wound. Since she will be under the care of surgery we will not be seeing her back unless they need us. Patient was given Aquacel extra to cover till surgery for packing. Subjective Subjective Patient has no concerns she says the wound VAC has been staying well they reinforce it just once a week Objective Data Objective Data Measurements are dramatically smaller's first told is gone completely and she does have an odor about her so we will reculture her and see if there is any problems. Vital Signs: Vital Signs Temp Pulse Resp BP 97 F L 97 18 140/100 H 06/20/21 08:42 06/20/21 08:42 06/20/21 08:42 06/20/21 08:42 Weight: 416 lb Body Mass Index (BMI) 73.7 Lab / Micro Data Attestation: I reviewed the patient's lab results. Physical Exam Const oriented x3 General Appearance: cooperative Exam Limitations: no limitations Resp normal respiratory effort Effort and Inspection: able to speak in complete sentences Auscultation: clear to auscultation bilaterally Cardio regular rate and regular rhythm Palpation: normal PMI Rate: regular rate Rhythm: regular rhythm Skin Wounds: wounds noted Neuro oriented x3 Psych Appearance: grossly normal Speech: normal speech Thought Content: normal thought content Judgement: judgement good Debridement Note Debridement Note Wound debrided: Left lower abdomen Type of Debridement: Excisional debridement Anesthesia Used: 5% Lidocaine Gel Depth: Down to and including healthy tissue, in the subcutaneous layer and to muscle Percentage of wound debrided: 100 Instrument Used: 5mm curette Tissue Removed: Fibrin Severity: Fat Layer Exposed Amount of bleeding with debridement: Mild Bleeding Controlled with: Compression and gauze Patient tolerated procedure: Patient tolerated procedure well Assessment/Plan Assessment/Plan (1) Morbid obesity with body mass index (BMI) of 60.0 to 69.9 in adult: CODE(S): E66.01 - Morbid (severe) obesity due to excess calories; Z68.44 - Body mass index [BMI] 60.0-69.9, adult (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 Return VAC to company Discharge from the wound center for now will be under the care of surgery. (4) Wound, open, abdominal wall, anterior: CODE(S): S31.109A - Unspecified open wound of abdominal wall, unspecified quadrant without penetration into peritoneal cavity, initial encounter QUALIFIERS: Encounter type: initial encounter Qualified Code(s): S31.109A - Unspecified open wound of abdominal wall, unspecified quadrant without penetration into peritoneal cavity, initial encounter
== END 2021-06-20 09:22 | disposition home or self-care (01) ==
LOC: WC 08:30
PROVIDERS: PCP Family Medicine; Visit Provider Nurse Practitioner
DX: T81.49XA Infection following a procedure, other surgical site, initial encounter (principal); E66.01 Morbid (severe) obesity due to excess calories; Z92.3 Personal history of irradiation; Z85.42 Personal history of malignant neoplasm of other parts of uterus; Z79.01 Long term (current) use of anticoagulants; Z68.45 Body mass index [BMI] 70 or greater, adult; Y83.8 Other surgical procedures as the cause of abnormal reaction of the patient, or of later complication, without mention of misadventure at the time of the procedure; S31.109A Unspecified open wound of abdominal wall, unspecified quadrant without penetration into peritoneal cavity, initial encounter
CPT/HCPCS: 11042; 87070; 87075; 87077; 87186; 87205; 97605